=== PATIENT | male | born 1955 | race Caucasian/White ===

== ENCOUNTER 2022-01-03 19:37 | Inpatient (IN) ==
[2022-01-03] MEDS ORDERED: 0.9 % Sodium Chloride 1,000 ML IV ONE (20:28)
[2022-01-03 20:51] LABS: Basophils # 0.1 K/mcL (0.0-0.2); Basophils % 0.6 %; Eosinophils # 0.2 K/mcL (0.0-0.6); Eosinophils % 2.7 %; Hematocrit 38.5 % (37.5-50.1); Hemoglobin 13.2 g/dL (12.9-16.9); Immature Granulocytes % 0.9 % (0-4); Lymphocytes # 2.3 K/mcL (0.6-4.6); Lymphocytes % 28.4 %; Mean Corpuscular HGB Conc 34.3 g/dL (31.6-35.5); Mean Corpuscular Hemoglobin 33.5 pg (28.0-33.3); Mean Corpuscular Volume 97.7 fL (83.0-100.0); Mean Platelet Volume 9.9 fL (9.4-12.4); Monocytes % 12.8 %; Neutrophils # 4.4 K/mcL (1.6-8.9); Platelet Count 236 K/mcL (140-400); Red Blood Count 3.94 M/mcL (4.19-5.50); Red Cell Distribution Width 13.3 % (11.5-14.5); Segmented Neutrophils % 54.6 %; White Blood Count 8.1 K/mcL (4.3-11.1)
[2022-01-03 21:13] LABS: BUN/Creatinine Ratio 9 (6-26); Blood Urea Nitrogen 11 mg/dL (8-23); Carbon Dioxide 17 mEq/L (23-29); Chloride 109 mEq/L (98-107); Ethanol 169 mg/dL (Less than 10); Glucose 122 mg/dL (70-105); Osmolality,Calculated 285 (280-300); Potassium 3.3 mEq/L (3.5-5.1); Sodium 137 mEq/L (136-145); Troponin I < 0.03 ng/mL (< 0.04); eGFR For African Americans > 60 (> 60); eGFR For Non-African Americans 60 (> 60)
[2022-01-03] MEDS ORDERED: ceFAZolin 1,000 MG in 0.9 % Sodium Chloride 10 ML IVP ONE (22:40)
[2022-01-03] MEDS ORDERED: Tdap (Boostrix) Vaccine 0.5 ML SYRINGE IM ONE (22:40)
[2022-01-03] MEDS ORDERED: Melatonin 3 MG TABLET PO PRN (23:01)
[2022-01-03] MEDS ORDERED: *HR* HYDROcodone/Acet 5/325 mg TABLET PO PRN (23:01)
[2022-01-03] MEDS ORDERED: Naloxone 0.4 MG/ML INJ IVP PRN (23:01)
[2022-01-03] MEDS ORDERED: *HR* Promethazine 25 MG/ML VIAL IM PRN (23:01)
[2022-01-03] MEDS ORDERED: Ondansetron 4 MG/2 ML VIAL IVP PRN (23:01)
[2022-01-03] MEDS ORDERED: Perflutren Lipid Microsphere 1.3 ML in 0.9 % Sodium Chloride 8.7 ML IVP PRN (23:02)
[2022-01-03] MEDS ORDERED: *HR* LORazepam 2 MG/ML VIAL IVP PRN ×3 (23:03)
[2022-01-03] MEDS ORDERED: Iopamidol - 370 500 ML MLS IVP ONE (23:33)
[2022-01-04 03:35] LABS: Basophils % 0.5 %; Eosinophils # 0.2 K/mcL (0.0-0.6); Eosinophils % 2.9 %; Hematocrit 41.9 % (37.5-50.1); Hemoglobin 14.1 g/dL (12.9-16.9); Immature Granulocytes % 1.2 % (0-4); Lymphocytes # 1.5 K/mcL (0.6-4.6); Lymphocytes % 24.5 %; Mean Corpuscular HGB Conc 33.7 g/dL (31.6-35.5); Mean Corpuscular Hemoglobin 32.3 pg (28.0-33.3); Mean Corpuscular Volume 96.1 fL (83.0-100.0); Mean Platelet Volume 9.8 fL (9.4-12.4); Monocytes # 0.7 K/mcL (0.0-1.3); Monocytes % 11.4 %; Neutrophils # 3.6 K/mcL (1.6-8.9); Platelet Count 249 K/mcL (140-400); Red Blood Count 4.36 M/mcL (4.19-5.50); Red Cell Distribution Width 13.2 % (11.5-14.5); Segmented Neutrophils % 59.5 %
[2022-01-04 03:40] LABS: BUN/Creatinine Ratio 8 (6-26); Blood Urea Nitrogen 8 mg/dL (8-23); Calcium 8.8 mg/dL (8.6-10.3); Carbon Dioxide 18 mEq/L (23-29); Chloride 113 mEq/L (98-107); Chol/HDL Ratio 4.1 (0-4.9); Cholesterol 191 mg/dL (< 200); Glucose 107 mg/dL (70-105); HDL Cholesterol 47 mg/dL (40-59); LDL Cholesterol,Calculated 99 mg/dL (< 100); Magnesium 1.9 mg/dL (1.6-2.6); Osmolality,Calculated 291 (280-300); Potassium 3.9 mEq/L (3.5-5.1); Sodium 141 mEq/L (136-145); Triglycerides 224 mg/dL (< 150); eGFR For African Americans > 60 (> 60); eGFR For Non-African Americans > 60 (> 60)
[2022-01-04 03:53] LABS: Prothrombin Time 10.6 Seconds (9.4-12.1)
[2022-01-04] MEDS: *HR* Enoxaparin 40 MG/0.4 ML SYRINGE SQ SCH (05:52)
[2022-01-04] MEDS: Acetaminophen 325 MG TABLET PO PRN ×2 (10:20→20:16)
[2022-01-04] MEDS: Folic Acid 1 MG TABLET PO SCH (10:20)
[2022-01-04] MEDS: Vitamin B Complex/Vit C/Vit E 1 EACH TABLET PO SCH (10:21)
[2022-01-04] MEDS: Thiamine (B-1) 100 MG TABLET PO SCH (10:21)
[2022-01-04] MEDS: lisinopriL 20 MG TABLET PO SCH (15:08)
[2022-01-04] MEDS: atenoloL 50 MG TABLET PO SCH (15:44)
[2022-01-04] MEDS: amLODIPine 5 MG TABLET PO SCH (15:44)
[2022-01-04] MEDS: gemfibroziL 600 MG TABLET PO SCH (20:16)
[2022-01-05] MEDS: *HR* Enoxaparin 40 MG/0.4 ML SYRINGE SQ SCH (05:59)
[2022-01-05] MEDS: lisinopriL 20 MG TABLET PO SCH (08:30)
[2022-01-05] MEDS: gemfibroziL 600 MG TABLET PO SCH (08:31)
[2022-01-05] MEDS: atenoloL 50 MG TABLET PO SCH (08:31)
[2022-01-05] MEDS: Folic Acid 1 MG TABLET PO SCH (08:31)
[2022-01-05] MEDS: amLODIPine 5 MG TABLET PO SCH (08:31)
[2022-01-05] MEDS: Vitamin B Complex/Vit C/Vit E 1 EACH TABLET PO SCH (08:31)
[2022-01-05] MEDS: Thiamine (B-1) 100 MG TABLET PO SCH (08:31)
[2022-01-05] MEDS ORDERED: amLODIPine 5 MG TABLET PO SCH (09:00)
[2022-01-05] MEDS ORDERED: atenoloL 50 MG TABLET PO SCH (09:00)
[2022-01-05] MEDS ORDERED: lisinopriL 20 MG TABLET PO SCH (09:00)
[2022-01-05] MEDS ORDERED: Aspirin Enteric Coated 81 MG Tablet PO SCH (09:00)
[2022-01-05 10:33] VITALS: PULSE 58; TEMP 98; O2SAT 96
[2022-01-05 13:35] VITALS: BP 144/79
== END 2022-01-05 14:33 | disposition home or self-care (01) | DRG 563 ==
LOC: 3BNU 19:37 → EMEROOARM 19:37 → SUATTDRO 22:58 → 3BNU 01-04 00:04
PROVIDERS: ADMIT Internal Medicine; ATTEND Registered Nurse

== ENCOUNTER 2022-01-20 10:15 | Inpatient (IN) ==
[2022-01-20 11:11] LABS: Basophils % 0.5 %; Eosinophils # 0.2 K/mcL (0.0-0.6); Eosinophils % 3.2 %; Hematocrit 43.1 % (37.5-50.1); Hemoglobin 14.7 g/dL (12.9-16.9); Immature Granulocytes % 0.8 % (0-4); Lymphocytes # 1.7 K/mcL (0.6-4.6); Lymphocytes % 23.4 %; Mean Corpuscular HGB Conc 34.1 g/dL (31.6-35.5); Mean Corpuscular Hemoglobin 33.1 pg (28.0-33.3); Mean Corpuscular Volume 97.1 fL (83.0-100.0); Mean Platelet Volume 10.1 fL (9.4-12.4); Monocytes # 0.8 K/mcL (0.0-1.3); Monocytes % 10.9 %; Neutrophils # 4.5 K/mcL (1.6-8.9); Platelet Count 253 K/mcL (140-400); Red Blood Count 4.44 M/mcL (4.19-5.50); Red Cell Distribution Width 13.2 % (11.5-14.5); Segmented Neutrophils % 61.2 %; White Blood Count 7.4 K/mcL (4.3-11.1)
[2022-01-20 11:19] LABS: INR 1.3; Prothrombin Time 14.3 Seconds (9.4-12.1)
[2022-01-20 11:22] LABS: Activated Partial Thrombo Time 50.3 Seconds (26.0-36.0); BUN/Creatinine Ratio 10 (6-26); Blood Urea Nitrogen 10 mg/dL (8-23); Calcium 9.6 mg/dL (8.6-10.3); Carbon Dioxide 19 mEq/L (23-29); Chloride 112 mEq/L (98-107); Glucose 104 mg/dL (70-105); Osmolality,Calculated 289 (280-300); Potassium 3.9 mEq/L (3.5-5.1); Sodium 140 mEq/L (136-145); Troponin I < 0.03 ng/mL (< 0.04); eGFR For African Americans > 60 (> 60); eGFR For Non-African Americans > 60 (> 60)
[2022-01-20] MEDS ORDERED: Naloxone 0.4 MG/ML INJ IVP PRN (13:25)
[2022-01-20] MEDS ORDERED: Ondansetron 4 MG/2 ML VIAL IVP PRN (13:25)
[2022-01-20] MEDS ORDERED: Acetaminophen 325 MG TABLET PO PRN (15:45)
[2022-01-20] MEDS: allopurinoL 100 MG TABLET PO SCH (19:53)
[2022-01-21 03:43] LABS: Basophils % 0.6 %; Eosinophils # 0.3 K/mcL (0.0-0.6); Eosinophils % 3.5 %; Hematocrit 39.3 % (37.5-50.1); Hemoglobin 13.3 g/dL (12.9-16.9); Immature Granulocytes % 0.4 % (0-4); Lymphocytes # 1.8 K/mcL (0.6-4.6); Lymphocytes % 25.6 %; Mean Corpuscular HGB Conc 33.8 g/dL (31.6-35.5); Mean Corpuscular Hemoglobin 32.8 pg (28.0-33.3); Mean Platelet Volume 10.2 fL (9.4-12.4); Monocytes # 0.8 K/mcL (0.0-1.3); Neutrophils # 4.2 K/mcL (1.6-8.9); Platelet Count 248 K/mcL (140-400); Red Blood Count 4.05 M/mcL (4.19-5.50); Segmented Neutrophils % 58.9 %; White Blood Count 7.1 K/mcL (4.3-11.1)
[2022-01-21 03:49] LABS: INR 1.2; Prothrombin Time 13.5 Seconds (9.4-12.1)
[2022-01-21 04:02] LABS: BUN/Creatinine Ratio 12 (6-26); Blood Urea Nitrogen 12 mg/dL (8-23); Calcium 9.4 mg/dL (8.6-10.3); Carbon Dioxide 22 mEq/L (23-29); Chloride 113 mEq/L (98-107); Glucose 101 mg/dL (70-105); Osmolality,Calculated 296 (280-300); Potassium 3.6 mEq/L (3.5-5.1); Sodium 143 mEq/L (136-145); eGFR For African Americans > 60 (> 60); eGFR For Non-African Americans > 60 (> 60)
[2022-01-21] MEDS: Aspirin Enteric Coated 81 MG Tablet PO SCH (09:32)
[2022-01-21] MEDS: allopurinoL 100 MG TABLET PO SCH ×2 (09:32→20:20)
[2022-01-21] MEDS ORDERED: 0.9 % Sodium Chloride 1,000 ML ONE (14:23)
[2022-01-21] MEDS ORDERED: 0.9 % Sodium Chloride 500 ML ONE (14:23)
[2022-01-21] MEDS ORDERED: *HR* FentaNYL (PF) 100 MCG/2 ML VIAL ONE ×2 (14:27→15:20)
[2022-01-21] MEDS ORDERED: *HR* Midazolam HCl 2 MG/2 ML VIAL ONE ×2 (14:27→15:04)
[2022-01-21] MEDS ORDERED: CeFAZolin 2 GM/120 ML BAG IVPB ONE (23:00)
[2022-01-22 03:52] LABS: Basophils % 0.3 %; Eosinophils # 0.2 K/mcL (0.0-0.6); Eosinophils % 2.4 %; Hematocrit 42.1 % (37.5-50.1); Hemoglobin 14.1 g/dL (12.9-16.9); Immature Granulocytes % 0.7 % (0-4); Lymphocytes # 1.5 K/mcL (0.6-4.6); Lymphocytes % 16.6 %; Mean Corpuscular HGB Conc 33.5 g/dL (31.6-35.5); Mean Corpuscular Hemoglobin 32.4 pg (28.0-33.3); Mean Corpuscular Volume 96.8 fL (83.0-100.0); Mean Platelet Volume 9.7 fL (9.4-12.4); Monocytes # 0.9 K/mcL (0.0-1.3); Monocytes % 10.4 %; Neutrophils # 6.3 K/mcL (1.6-8.9); Platelet Count 226 K/mcL (140-400); Red Blood Count 4.35 M/mcL (4.19-5.50); Red Cell Distribution Width 13.1 % (11.5-14.5); Segmented Neutrophils % 69.6 %; White Blood Count 9.1 K/mcL (4.3-11.1)
[2022-01-22 04:22] LABS: BUN/Creatinine Ratio 14 (6-26); Blood Urea Nitrogen 13 mg/dL (8-23); Calcium 9.3 mg/dL (8.6-10.3); Carbon Dioxide 19 mEq/L (23-29); Chloride 111 mEq/L (98-107); Glucose 106 mg/dL (70-105); Magnesium 1.9 mg/dL (1.6-2.6); Osmolality,Calculated 293 (280-300); Potassium 3.4 mEq/L (3.5-5.1); Sodium 141 mEq/L (136-145); eGFR For African Americans > 60 (> 60); eGFR For Non-African Americans > 60 (> 60)
[2022-01-22 04:27] LABS: Thyroid Stimulating Hormone 2.007 mcIU/mL (0.340-5.600)
[2022-01-22 07:35] VITALS: TEMP 98.1
[2022-01-22] MEDS ORDERED: atenoloL 50 MG TABLET PO SCH (09:00)
[2022-01-22] MEDS ORDERED: amLODIPine 5 MG TABLET PO SCH (09:00)
[2022-01-22] MEDS ORDERED: lisinopriL 20 MG TABLET PO SCH (09:00)
[2022-01-22] MEDS: Aspirin Enteric Coated 81 MG Tablet PO SCH (09:16)
[2022-01-22] MEDS: allopurinoL 100 MG TABLET PO SCH (09:17)
[2022-01-22 12:09] VITALS: BP 155/91; PULSE 86; O2SAT 97
== END 2022-01-22 15:35 | disposition home or self-care (01) | DRG 244 ==
LOC: EMEROOARM 10:15 → 2ANU 10:15 → SUATTDRO 14:07 → 2ANU 14:46
PROVIDERS: ADMIT Internal Medicine; ATTEND Pharmacist